=== PATIENT | male | born 1995 | race Two or more races ===

== ENCOUNTER 2018-01-02 00:18 | Emergency (ER) | payer BC, OTHER ==
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
[2018-01-02 00:53] VITALS: BP 124/88; PULSE 80; TEMP 99.3; BMI 21.4
== END 2018-01-02 02:40 | disposition home or self-care (01) ==
LOC: JER 00:18
DX: S09.8XXA Other specified injuries of head, initial encounter (principal); V57.5XXA Driver of pick-up truck or van injured in collision with fixed or stationary object in traffic accident, initial encounter; Y92.414 Local residential or business street as the place of occurrence of the external cause; W22.11XA Striking against or struck by driver side automobile airbag, initial encounter; Y93.89 Activity, other specified; Y99.8 Other external cause status
CPT/HCPCS: 70450-TC; 72125-TC; 99281-25

== ENCOUNTER 2018-02-10 21:17 | Emergency (ER) | payer SELFPAY ==
[2018-02-10] MEDS ORDERED: IBUPROFEN 400 MG TABLET (FP) PO ONE ×2 (21:21→21:43)
--- NOTE | 2018-02-10 21:22 | PDOC ---
Rapid Medical Evaluation Chief Complaint: Sore Throat Time Seen by Provider: 02/10/18 21:20 Medical Evaluation: Allergies Allergy/AdvReac Type Severity Reaction Status Date / Time latex Allergy Verified 01/02/18 00:53 02/10/18 21:22 I have performed a brief in-person evaluation of this patient. The patient presents with a chief complaint of:sore throat w/ fever x 2 days Pertinent physical exam findings:T 102 w/ b/l tonsillar enlargement w/ exudates I have ordered the following:motrin/strep The patient will proceed to the ED for further evaluation. Discharge Disposition - Diagnosis Pharyngitis Qualifiers: Pharyngitis/tonsillitis etiology: unspecified etiology Qualified Code(s): J02.9 - Acute pharyngitis, unspecified - Referrals - Patient Instructions - Post Discharge Activity
[2018-02-10 21:24] VITALS: BP 99/61; PULSE 68; BMI 20.7
--- NOTE | 2018-02-10 21:44 | PDOC ---
History of Present Illness - General Chief Complaint: Sore Throat Stated Complaint: THROAT PAIN Time Seen by Provider: 02/10/18 21:20 Past History - Past Medical History Allergies/Adverse Reactions: Allergies Allergy/AdvReac Type Severity Reaction Status Date / Time latex Allergy Verified 01/02/18 00:53 Home Medications: Ambulatory Orders Amoxicillin - [Amoxicillin 500mg Capsule -] 500 mg PO BID #14 capsule 05/13/17 COPD: No DVT: No - Surgical History Appendectomy: Yes - Immunization History Immunization Up to Date: Yes - Suicide/Smoking/Psychosocial Hx Smoking History: Never smoked Have you smoked in the past 12 months: No Hx Alcohol Use: No Drug/Substance Use Hx: Yes (marijuana) Substance Use Type: None *Physical Exam - Vital Signs Last Vital Signs Temp Pulse Resp BP Pulse Ox 102.4 F H 68 18 99/61 100 02/10/18 21:21 02/10/18 21:21 02/10/18 21:21 02/10/18 21:21 02/10/18 21:21 Moderate Sedation - Procedure Monitoring Vital Signs: Procedure Monitoring Vital Signs Temperature 102.4 F H 02/10/18 21:21 Pulse Rate 68 02/10/18 21:21 Respiratory Rate 18 02/10/18 21:21 Blood Pressure 99/61 02/10/18 21:21 O2 Sat by Pulse Oximetry (%) 100 02/10/18 21:21 *DC/Admit/Observation/Transfer Diagnosis at time of Disposition: Pharyngitis Qualifiers: Pharyngitis/tonsillitis etiology: unspecified etiology Qualified Code(s): J02.9 - Acute pharyngitis, unspecified - Referrals - Patient Instructions - Post Discharge Activity
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
[2018-02-10 23:04] VITALS: TEMP 100.1
== END 2018-02-10 23:08 | disposition home or self-care (01) ==
LOC: JERFT 21:17
DX: J02.9 Acute pharyngitis, unspecified (principal)
CPT/HCPCS: 87070; 87880; 99281-25

== ENCOUNTER 2021-11-18 21:30 | Emergency (ER) | payer OTHER ==
[2021-11-18 21:35] VITALS: RESP 18; TEMP 98.2; BMI 21.5
[2021-11-18] MEDS ORDERED: SODIUM CHLORIDE 0.9% 500 ML INFUS.BAG IV ONE (23:32)
[2021-11-19 00:17] LABS: BASO % 0.6 % (0-2.0); HEMATOCRIT 46.8 % (35.4-49); HEMOGLOBIN 15.8 GM/dL (11.7-16.9); LYMPH % 11.7 % (8-40); MCH 30.5 pg (25.7-33.7); MCHC 33.8 g/dl (32.0-35.9); MEAN PLT VOLUME 8.4 fl (7.5-11.1); MONO % 7.9 % (3.8-10.2); NEUT % 78.8 % (42.8-82.8); PLATELET COUNT 333 10^3/uL (134-434); WHITE BLOOD COUNT 11.5 K/mm3 (4.0-10.0)
[2021-11-19 00:39] LABS: ALBUMIN 4.2 g/dl (3.4-5.0); BLOOD UREA NITROGEN 12.1 mg/dL (7-18); CALCIUM 9.3 mg/dL (8.5-10.1)
[2021-11-19 00:42] LABS: CREATININE 1.2 mg/dL (0.55-1.3)
[2021-11-19 00:43] LABS: BILIRUBIN,TOTAL 0.9 mg/dL (0.2-1); TOT PROT 8.5 g/dl (6.4-8.2)
[2021-11-19 01:24] LABS: METHADONE, UR NEGATIVE (NEGATIVE); OPIATES, URI NEGATIVE (NEGATIVE); PHENCYCLIDINE,URINE NEGATIVE (NEGATIVE); URINE BARBITURATES NEGATIVE (NEGATIVE)
[2021-11-19 01:32] LABS: COCAINE, UR NEGATIVE (NEGATIVE); URINE AMPHETAMINES NEGATIVE (NEGATIVE); URINE BENZODIAZEPINES NEGATIVE (NEGATIVE)
[2021-11-19 02:01] VITALS: BP 122/76; PULSE 86
== END 2021-11-19 02:01 | disposition home or self-care (01) ==
LOC: JER 21:30
DX: R00.2 Palpitations (principal)
CPT/HCPCS: 36415; 80053; 80307; 85025; 93005; 93010; 99284-25

== ENCOUNTER 2021-12-11 16:20 | Emergency (ER) | payer OTHER ==
[2021-12-11 16:27] VITALS: BP 119/77; PULSE 95; RESP 18; TEMP 98.1; BMI 24.3
[2021-12-11] MEDS ORDERED: diazePAM 5 MG TABLET PO ONE (17:23)
[2021-12-11] MEDS ORDERED: KETOROLAC TROMETHAMINE 30 MG/1 ML VIAL IM ONE (17:23)
[2021-12-11] MEDS ORDERED: diazePAM 5 MG TABLET ONE (17:27)
[2021-12-11] MEDS ORDERED: KETOROLAC TROMETHAMINE 30 MG/1 ML VIAL ONE (17:27)
== END 2021-12-11 18:43 | disposition home or self-care (01) ==
LOC: JER 16:20 → JERFT 16:20
PROC: 3E0233Z Introduction of Anti-inflammatory into Muscle, Percutaneous Approach (ICD-10-PCS; principal; 2021-12-11)
DX: M54.50 Low back pain, unspecified (principal)
CPT/HCPCS: 99284-25